=== PATIENT | female | born 1960 | race African-American/Black ===

== ENCOUNTER → 2016-10-22 | Outpatient (CLI) | payer BC ==
--- NOTE | 2016-10-22 15:52 | KCIC ---
Pelvic ultrasound HISTORY: Endometrial thickening. FINDINGS: Limited visualization of pelvic structures due to body habitus. Patient was unable to tolerate endovaginal scan. Uterus measures approximately 9.5 cm longitudinal by 5.6 cm AP by 7.1 cm wide. There are some echogenic shadowing structures within the uterus, posteriorly, most likely due to a calcified uterine fibroid. Endometrial stripe measures approximately 19 mm. No evidence of free fluid. Right and left ovaries are not visualized. IMPRESSION: 1. Limited exam. Right and left ovaries are not visualized. 2. Calcified shadowing lesion within the uterus, most likely a fibroid. 3. Mild nonspecific endometrial thickening, 19 mm. Considerations polyp or other mass, endometritis or endometrial hemorrhage. No obvious hypervascularity. Electronically signed by: Tutu Collins MD (10/22/2016 3:48 PM)
== END | disposition home or self-care (01) ==
LOC: KCIC US 14:31
PROVIDERS: ATTEND Obstetrics & Gynecology
DX: Z85.42 Personal history of malignant neoplasm of other parts of uterus (principal)
CPT/HCPCS: 76856

== ENCOUNTER → 2016-11-08 | Outpatient (CLI) | payer BC ==
--- NOTE | 2016-11-08 18:12 | KCIC ---
Bilateral digital screening mammograms: Reason for examination: Routine screening. New baseline. The skin and nipples show no abnormalities. No abnormal axillary lymph nodes are seen. The breast parenchyma shows scattered fibroglandular density. (Breast density: Category B.) There is a small circumscribed nodule at the 10:00 B position of the right breast consistent with a small intramammary lymph node. There are no dominant masses, suspicious calcifications or architectural distortions. Some benign calcifications are present. Impression: No evidence of malignancy. Recommend routine screening. BI-RADS category 2: Benign "Our facility is accredited by the [employer] Mammography [employer]." This patient's information has been entered into a reminder system for the patient to be notified with the results of her examination and a target date for the next mammogram. Electronically signed by: Fanny Springer MD (11/08/2016 6:09 PM) [id number]
== END | disposition home or self-care (01) ==
LOC: KCIC MAMMO 16:20
PROVIDERS: ATTEND Obstetrics & Gynecology
DX: Z12.31 Encounter for screening mammogram for malignant neoplasm of breast (principal)
CPT/HCPCS: G0202; 77067

== ENCOUNTER → 2018-08-25 | Outpatient (CLI) | payer BC ==
--- NOTE | 2018-08-25 15:49 | KCIC ---
EXAM: Left lower extremity venous Doppler sonogram. HISTORY: Swelling and pain. TECHNIQUE: Calixto scale and color Doppler sonographic evaluation of the left lower extremity veins with spectral waveform analysis was performed. FINDINGS: There is normal color flow, normal compressibility and there are normal spectral waveforms in the common femoral, superficial femoral, popliteal, posterior tibial and greater saphenous veins. IMPRESSION: No Doppler evidence of lower extremity deep venous thrombosis. Electronically signed by: Veda Whipple MD (08/25/2018 3:46 PM) [place] [id number]
== END | disposition home or self-care (01) ==
LOC: KCIC US 14:40
PROVIDERS: ATTEND Internal Medicine
DX: M79.605 Pain in left leg (principal); R22.42 Localized swelling, mass and lump, left lower limb
CPT/HCPCS: 93971

== ENCOUNTER 2021-08-10 17:59 | Emergency (ER) | payer BC ==
[~2021-08-10] VITALS: Ht 147.3 cm; Wt 115.8 kg
--- NOTE | 2021-08-10 19:23 | PHYS DOC ---
Past Medical History Past Medical History: Asthma, Hypertension General Adult EDM: Chief Complaint: COUGH HPI: HPI: Patient is a 61-year-old female who presented today with cough. Patient states that her cough started on Tuesday and is progressively gotten worse over the last couple of days, she has had increased shortness of breath over the last 24 hours, she states that she does have a past medical history of asthma with bronchitis in the past and she does use an inhaler on a daily basis and she states the inhaler is not helping any of her symptoms. Patient states she also has a past medical history of pneumonia as well. Patient states she has had her COVID and influenza vaccines. Review of Systems: Review of Systems: Constitutional: Denies fever or chills. [] Eyes: Denies change in visual acuity. [] HENT: Denies nasal congestion or sore throat. [] Respiratory: Denies cough or shortness of breath. [] Cardiovascular: Denies chest pain or edema. [] GI: Denies abdominal pain, nausea, vomiting, bloody stools or diarrhea. [] : Denies dysuria. [] Musculoskeletal: Denies back pain or joint pain. [] Integument: Denies rash. [] Neurologic: Denies headache, focal weakness or sensory changes. [] Endocrine: Denies polyuria or polydipsia. [] Lymphatic: Denies swollen glands. [] Psychiatric: Denies depression or anxiety. [] Heart Score: C/O Chest Pain: No Risk Factors: Risk Factors: DM, Current or recent (<one month) smoker, HTN, HLP, family history of CAD, obesity. Risk Scores: Score 0 - 3: 2.5% MACE over next 6 weeks - Discharge Home Score 4 - 6: 20.3% MACE over next 6 weeks - Admit for Clinical Observation Score 7 - 10: 72.7% MACE over next 6 weeks - Early Invasive Strategies Current Medications: Current Medications Medications (Trade) Dose Ordered Sig/Jb Route PRN Reason Start Time Stop Time Status Last Admin Dose Admin Prednisone (Prednisone) 50 mg 1X ONCE PO 08/10/21 19:30 08/10/21 19:31 DC 08/10/21 20:29 Albuterol/ Ipratropium (Duoneb) 3 ml 1X ONCE NEB 08/10/21 19:30 08/10/21 19:31 DC 08/10/21 20:05 Physical Exam: PE: Constitutional: Well developed, well nourished, no acute distress, non-toxic appearance. [] HENT: Normocephalic, atraumatic, bilateral external ears normal, oropharynx moist, no oral exudates, nose normal. [] Eyes: PERRLA, EOMI, conjunctiva normal, no discharge. [] Neck: Normal range of motion, no tenderness, supple, no stridor. [] Cardiovascular:Heart rate regular rhythm, no murmur [] Lungs & Thorax: Bilateral breath sounds clear to auscultation [] Abdomen: Bowel sounds normal, soft, no tenderness, no masses, no pulsatile masses. [] Skin: Warm, dry, no erythema, no rash. [] Back: No tenderness, no CVA tenderness. [] Extremities: No tenderness, no cyanosis, no clubbing, ROM intact, no edema. [] Neurologic: Alert and oriented X 3, normal motor function, normal sensory function, no focal deficits noted. [] Psychologic: Affect normal, judgement normal, mood normal. [] Current Patient Data: Labs: Laboratory Tests Test 08/10/21 20:15 08/10/21 20:30 White Blood Count 5.1 x10^3/uL Red Blood Count 4.49 x10^6/uL Hemoglobin 12.5 g/dL Hematocrit 38.8 % Mean Corpuscular Volume 86 fL Mean Corpuscular Hemoglobin 28 pg Mean Corpuscular Hemoglobin Concent 32 g/dL Red Cell Distribution Width 13.6 % Platelet Count 244 x10^3/uL Neutrophils (%) (Auto) 49 % Lymphocytes (%) (Auto) 32 % Monocytes (%) (Auto) 16 % Eosinophils (%) (Auto) 2 % Basophils (%) (Auto) 1 % Neutrophils # (Auto) 2.5 x10^3/uL Lymphocytes # (Auto) 1.6 x10^3/uL Monocytes # (Auto) 0.8 x10^3/uL Eosinophils # (Auto) 0.1 x10^3/uL Basophils # (Auto) 0.1 x10^3/uL Sodium Level 144 mmol/L Potassium Level 3.7 mmol/L Chloride Level 108 mmol/L Carbon Dioxide Level 28 mmol/L Anion Gap 8 Blood Urea Nitrogen 16 mg/dL Creatinine 1.7 mg/dL Estimated GFR (Cockcroft-Gault) 36.7 Glucose Level 97 mg/dL Calcium Level 9.0 mg/dL Influenza Type A Antigen Positive Influenza Type B Antigen Negative SARS-CoV-2 Antigen (Rapid) Negative Current Medications Medications (Trade) Dose Ordered Sig/Jb Route PRN Reason Start Time Stop Time Status Last Admin Dose Admin Prednisone (Prednisone) 50 mg 1X ONCE PO 08/10/21 19:30 08/10/21 19:31 DC 08/10/21 20:29 Albuterol/ Ipratropium (Duoneb) 3 ml 1X ONCE NEB 08/10/21 19:30 08/10/21 19:31 DC 08/10/21 20:05 Vital Signs: Vital Signs Date Time Temp Pulse Resp B/P (MAP) Pulse Ox O2 Delivery O2 Flow Rate FiO2 08/10/21 20:28 98.0 83 22 141/65 (90) 97 Room Air 98.0 08/10/21 20:09 99 Room Air 08/10/21 18:55 98.8 82 22 123/59 (80) 97 Room Air 98.8 Vital Signs Date Time Temp Pulse Resp B/P (MAP) Pulse Ox O2 Delivery O2 Flow Rate FiO2 08/10/21 20:28 98.0 83 22 141/65 (90) 97 Room Air 98.0 08/10/21 20:09 99 Room Air 08/10/21 18:55 98.8 82 22 123/59 (80) 97 Room Air 98.8 EKG: EKG: [] Radiology/Procedures: Radiology/Procedures: REASON: COUGH PROCEDURE: CHEST AP ONLY INDICATION: Reason: COUGH / Spl. Instructions: / History: COMPARISON: August 2011 FINDINGS: Single view of chest obtained. Cardiomediastinal silhouette is prominent in size with calcific atherosclerosis. Enlarged pulmonary mary. Haziness right lung base. Degenerative changes spine. IMPRESSION: * Haziness right chest base could be overlap of soft tissue structures and atelectasis but mild infiltrate not excluded. * Enlarged cardiac silhouette with calcific atherosclerosis and fullness of the pulmonary mary. Electronically signed by: Hamzah Arrington MD (08/10/2021 8:21 PM) [id number] [] Course & Med Decision Making: Course & Med Decision Making Pertinent Labs and Imaging studies reviewed. (See chart for details) 2119 I reviewed radiological and laboratory results with patient I did inform her that she had influenza A and that that is the reason she is coughing and having difficulty breathing, patient states she feels much better now that she had a breathing treatment steroids, patient will be treated on an outpatient basis. Patient will continue albuterol inhaler or nebulizer every 4 hours as needed for shortness of breath, she will continue with prednisone on a daily basis I will also give her Tessalon Perles for coughing and she can follow-up with her primary care physician Dr. Kennedy this week for further medical management of her asthma and influenza A. Patient verbalized understanding of this and agreeable with the plan of care. Patient is instructed to return to the emergency department for increased shortness of breath, chest pain, or inability to keep any by mouth fluids down. Dragon Disclaimer: Dragon Disclaimer: This electronic medical record was generated, in whole or in part, using a voice recognition dictation system. Departure Departure Impression: Primary Impression: Influenza A Disposition: HOME / SELF CARE / HOMELESS Condition: STABLE Referrals: FRANKIE KENNEDY MD (PCP) Patient Instructions: Influenza A (H1N1) Additional Instructions: Albuterol inhaler/nebulizer every 4 hours as needed for shortness of breath Prednisone 50 mg take daily for 5 days Tessalon Kylejakub take 1 tablet every 8 hours as needed for coughing Cool-mist humidifier to help with coughing Tylenol and/or ibuprofen as needed for fever and pain Follow-up with your primary care physician Dr. Kennedy this week for further medical management of your asthma and influenza A Return to the emergency department for increased shortness of breath, chest pain, or development of a fever that is not controlled with Tylenol and or ibuprofen. Scripts Benzonatate (BENZONATATE) 100 Mg Capsule 1 CAP PO TID PRN PRN for COUGH, #15 CAP Prov: ARCHIE HAILE REEFER ENGINEER 08/10/21 Prednisone (PREDNISONE) 50 Mg Tablet 1 TAB PO DAILY, #5 TAB Prov: ARCHIE HAILE REEFER ENGINEER 08/10/21 ARCHIE HAILE REEFER ENGINEER Aug 10, 2021 19:23
[2021-08-10] MEDS ORDERED: predniSONE 10 MG TABLET PO ONE (19:30)
[2021-08-10] MEDS ORDERED: IPRATRPIUM/ALBUTEROL 0.5/2.5MG 3 ML NEBU. NEB ONE (19:30)
--- NOTE | 2021-08-10 20:23 | RAD ---
INDICATION: Reason: COUGH / Spl. Instructions: / History: COMPARISON: August 2011 FINDINGS: Single view of chest obtained. Cardiomediastinal silhouette is prominent in size with calcific atherosclerosis. Enlarged pulmonary mary. Haziness right lung base. Degenerative changes spine. IMPRESSION: * Haziness right chest base could be overlap of soft tissue structures and atelectasis but mild infi ltrate not excluded. * Enlarged cardiac silhouette with calcific atherosclerosis and fullness of the pulmonary mary. Electronically signed by: Hamzah Arrington MD (08/10/2021 8:21 PM) [id number]
[2021-08-10 20:27] LABS: BASO # 0.1 x10^3/uL (0.0-0.2); BASO % 1 % (0-3); EOS # 0.1 x10^3/uL (0.0-0.7); EOS % 2 % (0-3); HEMATOCRIT 38.8 % (36.0-47.0); HEMOGLOBIN 12.5 g/dL (12.0-15.5); LYMPH # 1.6 x10^3/uL (1.0-4.8); LYMPH % 32 % (24-48); MEAN CORPUSCULAR HEMOGLOBIN 28 pg (25-35); MEAN CORPUSCULAR HGB CONC 32 g/dL (31-37); MEAN CORPUSCULAR VOLUME 86 fL (79-100); MONO # 0.8 x10^3/uL (0.0-1.1); MONO % 16 % (0-9); NEUT # 2.5 x10^3/uL (1.8-7.7); NEUT % 49 % (31-73); PLATELET COUNT 244 x10^3/uL (140-400); RED BLOOD COUNT 4.49 x10^6/uL (3.50-5.40); RED CELL DISTRIBUTION WIDTH 13.6 % (11.5-14.5); WHITE BLOOD COUNT 5.1 x10^3/uL (4.0-11.0)
[2021-08-10 20:28] VITALS: BP 141/65
[2021-08-10 20:37] LABS: CREATININE 1.7 mg/dL (0.6-1.0); GFR 36.7; POTASSIUM 3.7 mmol/L (3.5-5.1)
[2021-08-10 20:52] LABS: INFLUENZA B PATIENT NEGATIVE (NEGATIVE)
[2021-08-10 20:57] LABS: INFLUENZA A PATIENT POSITIVE (NEGATIVE)
[2021-08-10] MEDS ORDERED: BENZ-8 PO (21:32)
[2021-08-10] MEDS ORDERED: PRED50TA PO (21:32)
== END 2021-08-10 21:35 | disposition home or self-care (01) ==
LOC: ER 17:59
DX: J10.1 Influenza due to other identified influenza virus with other respiratory manifestations (principal); Z20.822 Contact with and (suspected) exposure to COVID-19; J45.909 Unspecified asthma, uncomplicated; I10 Essential (primary) hypertension
CPT/HCPCS: 36415; 71045; 80048; 85025; 87428; 94640; 99284; J7512